=== PATIENT | male | born 1955 | race Caucasian/White ===

== ENCOUNTER 2016-05-01 00:25 | Emergency (ER) | payer OTHER ==
[~2016-05-01] VITALS: Ht 162.6 cm; Wt 74.5 kg
[~2016-05-01 00:25] MED LIST: BENA40TA41 PO; COLACE; GLIP5TAB25 PO; JANUVIA; METF500T9 PO; PRAV40TA76 PO; TERA1CAP36 PO; TERB250T9 PO; TRAMADOL
[2016-05-01 00:56] VITALS: Ht 162.6 cm; Wt 74.5 kg
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
[2016-05-01] MEDS ORDERED: IBUP-1542 PO (04:30)
[2016-05-01] MEDS ORDERED: BEN50 PO (04:30)
[2016-05-01] MEDS ORDERED: CEPH-443 PO (04:30)
[2016-05-01] MEDS ORDERED: DIPHENHYDRAMINE 50 MG CAP PO ONE (04:30)
[2016-05-01 05:02] VITALS: BP 162/77; PULSE 78; RESP 18; TEMP 98.2
== END 2016-05-01 05:00 | disposition home or self-care (01) ==
LOC: FTE 00:25
DX: T20.22XA Burn of second degree of lip(s), initial encounter (principal); T65.91XA Toxic effect of unspecified substance, accidental (unintentional), initial encounter; I10 Essential (primary) hypertension; E11.9 Type 2 diabetes mellitus without complications; X19.XXXA Contact with other heat and hot substances, initial encounter; Y92.9 Unspecified place or not applicable; Z79.84 Long term (current) use of oral hypoglycemic drugs
CPT/HCPCS: 99283

== ENCOUNTER 2017-07-26 11:15 | Day surgery (SDC) | END 2017-07-26 19:58 | disposition home or self-care (01) ==